=== PATIENT | male | born 1950 | race Caucasian/White ===

== ENCOUNTER 2016-08-16 10:55 | Day surgery (SDC) | payer MEDICARE ==
[~2016-08-16 10:55] MED LIST: Buffered Lidocaine 0.9% SYRIN* 5 ML/SYR SYRINGE INTRADERM ONE; Buffered Lidocaine 0.9% SYRIN* 5 ML/SYR SYRINGE ONE
[2016-08-16] MEDS ORDERED: fentaNYL* 50 MCG/ML 2 ML VIAL (100 MCG VIAL) ONE ×2 (13:51→16:01)
[2016-08-16] MEDS ORDERED: Midazolam* 1 MG/ML 5 ML VIAL (5 MG) ONE (13:51)
[2016-08-16] MEDS ORDERED: Propofol* 10 MG/ML 20 ML BTL IV PUSH ONE (15:54)
[2016-08-16 18:12] VITALS: BP 109/65
--- NOTE | 2016-08-17 13:14 | PRO ---
CC: Dr. Funes * DATE OF PROCEDURE: 08/16/16 - [facility] PROCEDURE: Colonoscopy with biopsy. MEDICINES USED: IV propofol administered by Anesthesiology. NARRATIVE: This is a 65-year-old gentleman with a family history of colon cancer and that his father had colon cancer. The patient has had colonoscopies in the past, although they have been described as difficult exams and incomplete. He did have an adenomatous polyp many years ago. He is asymptomatic. DESCRIPTION OF PROCEDURE: After the procedure was discussed with the patient, risks and benefits were outlined, written consent was obtained. The patient was placed in the left lateral decubitus position and a rectal exam was performed. The rectal exam was normal without any palpable abnormality. At that point, colonoscopy was carried out. A video adult flexible colonoscope was inserted anally and advanced very carefully into the cecum. The cecum was identified by the appendiceal orifice and the ileocecal valve. The terminal ileum was very briefly intubated. The quality of the preparation was generally good. There was some retained material seen throughout, but I did believe with extensive irrigation and suctioning, views were good. The patient tolerated the procedure well and there were no immediate complications. FINDINGS: Colonoscopy into the distal terminal ileum was performed. The ileum was inspected for about 10 to 15 cm and was normal. The colon was thereafter very carefully inspected. A small perhaps 4 to 5 mm sessile polyp was seen in the hepatic flexure. It was removed with a jumbo biopsy forceps. Additionally , minimal sigmoid diverticulosis was noted. No other mucosal abnormality was detected. The submucosal vascular pattern was normal. The rectum was viewed both in the forward view and retroflex manner and was normal. CONCLUSION: Small hepatic flexure polyp (removed), minimal sigmoid diverticulosis, otherwise normal colonoscopy into the terminal ileum. RECOMMENDATION: I will certainly review the biopsy results of this small polyp. Given his family history of colon cancer, I would recommend a followup colonoscopy in 5 years. Thank you very much, Dr. Funes, for referring this kind gentleman to me. [id number]/[facility] #: [id number] MTDD
== END 2016-08-16 18:05 | disposition home or self-care (01) ==
LOC: ENDO 10:55 → OR 10:55 → ENDO 18:05
PROVIDERS: ATTEND Internal Medicine Gastroenterology
DX: Z80.0 Family history of malignant neoplasm of digestive organs (principal); Z86.010 Personal history of colon polyps; D12.3 Benign neoplasm of transverse colon
CPT/HCPCS: 88305; J2250; J2704; J3010

== ENCOUNTER 2017-06-10 13:49 | Emergency (ER) | payer MEDICARE ==
[2017-06-10 15:22] VITALS: BP 134/86
--- NOTE | 2017-06-10 15:34 | UC ---
Complaint Male HPI - HPI Summary HPI Summary: Pt presents with dysuria and Blood in his urine X 1 day. Pt has hx of prostate bx and UTI. Pt is being followed by Dr. Tilley, [facility] urology for hematuria and possible prostate cancer. - History of Current Complaint Stated Complaint: UTI SYMPTOMS Time Seen by Provider: 06/10/17 15:03 Hx Obtained From: Patient Onset/Duration: Sudden Onset Timing: Intermittent Severity Initially: Mild Severity Currently: None Pain Intensity: 0 Location: Penis - distal tip with urination Character: Sharp, Burning Aggravating Factor(s): Voiding Associated Signs And Symptoms: Positive: Hematuria, Dysuria - Allergies/Home Medications Allergies/Adverse Reactions: Allergies Allergy/AdvReac Type Severity Reaction Status Date / Time Adhesive Tape Allergy Severe Blisters Verified 04/05/17 14:40 Penicillins Allergy Severe Anaphylatic Verified 06/10/17 15:10 Shock LATEX Allergy Severe Blisters Uncoded 04/05/17 14:40 PMH/Surg Hx/FS Hx/Imm Hx Previously Healthy: Yes GI/ History: Other - uti, prostate cancer currently being tested for. Other GI/ History: currently being tested for prostate cancer - Surgical History Surgical History: Yes Surgery Procedure, Year, and Place: CATARACT Xs 2- 1992 & 2000. TONSILECTOMY 1957. GALLBLADDER - 1999. LEFT KNEE MENISCUS REPAIR- 2010. RIGHT KNEE MENISCUS REPAIR 2012. BASAL CELL CA NOSE REMOVED- 2001 - Family History Known Family History: Positive: Cardiac Disease - Social History Occupation: Retired Lives: With Family Alcohol Use: None Substance Use Type: None Smoking Status (MU): Never Smoked Tobacco Have You Smoked in the Last Year: No Review of Systems Constitutional: Negative Skin: Negative Eyes: Negative ENT: Negative Respiratory: Negative Cardiovascular: Negative Gastrointestinal: Negative Genitourinary: Dysuria, Hematuria Motor: Negative Neurovascular: Negative Musculoskeletal: Negative Neurological: Negative Psychological: Negative Is Patient Immunocompromised?: No All Other Systems Reviewed And Are Negative: Yes Physical Exam Triage Information Reviewed: Yes Appearance: Well-Appearing Vital Signs: Initial Vital Signs Temp 98.3 F 06/10/17 15:11 Pulse 78 06/10/17 15:11 Resp 18 06/10/17 15:11 BP 134/86 06/10/17 15:11 Pulse Ox 98 06/10/17 15:11 Vital Signs Reviewed: Yes Eye Exam: Normal ENT Exam: Normal ENT: Positive: Hearing grossly normal Dental Exam: Normal Neck exam: Normal Respiratory Exam: Normal Cardiovascular Exam: Normal Musculoskeletal Exam: Normal Neurological Exam: Normal Psychological Exam: Normal Skin Exam: Normal Complaint Male Course/Dx - Differential Dx/Diagnosis Differential Diagnosis/HQI/PQRI: Urinary Tract Infection Provider Diagnoses: UTI Discharge - Sign-Out/Discharge Documenting (check all that apply): Discharge - Discharge Plan Condition: Stable Disposition: HOME Prescriptions: Nitrofurantoin Macrocrystal [Nitrofurantoin] 100 mg PO Q12H #14 capsule Patient Education Materials: Urinary Tract Infection in Men (DC) Referrals: Keyon Funes MD [Primary Care Provider] - If Needed Matheus Tilley MD [Medical Doctor] - If Needed - Billing Disposition and Condition Condition: STABLE Disposition: HOME
== END 2017-06-10 16:02 | disposition home or self-care (01) ==
LOC: UCCORT 13:49
DX: N39.0 Urinary tract infection, site not specified (principal); Z88.0 Allergy status to penicillin
CPT/HCPCS: 81003; 87086; 99212; G0463